=== PATIENT | male | born 1965 ===

== ENCOUNTER 2022-07-10 21:27 | Emergency (ER) | payer BC ==
[2022-07-10] MEDS ORDERED: Sodium Chloride 0.9% 20 ML SDV IV PRN (21:33)
[2022-07-10] MEDS ORDERED: Sodium Chloride 0.9% 2.5 ML Syringe FLUSH PRN (21:33)
[2022-07-10] MEDS ORDERED: Sodium Chloride 0.9% 10 ML Syringe FLUSH PRN (21:33)
[2022-07-10] MEDS ORDERED: Sodium Chloride 0.9% 1,000 ML IV STA (21:33)
[2022-07-10] MEDS ORDERED: Ondansetron 4 MG/2 ML SDV IVPUSH ONE (21:33)
[2022-07-10] MEDS: niCARdipine/Normal Saline 20 MG/200 ML BAG IV SCH (21:52)
[2022-07-10 22:49] LABS: BLOOD UREA NITROGEN,BUN 20 mg/dL (7.0-18.0); CARBON DIOXIDE,CO2 27.5 mmol/L (21.0-32.0); CHLORIDE,CL 102 mmol/L (98-107); GLUCOSE RANDOM 140 mg/dL (74-106); SODIUM,NA 139 mmol/L (136-148)
[2022-07-10 22:50] LABS: ESTIMATED GFR 50 mL/min (>60)
[2022-07-10 23:00] LABS: CORONAVIRUS COVID-19 NAA NEGATIVE (NEGATIVE); INFLUENZA A NAA NEGATIVE (NEGATIVE); INFLUENZA B NAA NEGATIVE (NEGATIVE); RESPIRATORY SYNCYTIAL VIR NAA NEGATIVE (NEGATIVE)
[2022-07-10] MEDS ORDERED: fentaNYL 50 MCG/ML SDV IVPUSH ONE (23:18)
[2022-07-11] MEDS ORDERED: Iopamidol 755 MG/ML 200 ML Multipack Bottle IVPUSH STA (00:36)
[2022-07-11] MEDS ORDERED: Iopamidol 755 MG/ML 500 ML Multipack Bottle IVPUSH STA (00:38)
[2022-07-11] MEDS: niCARdipine/Normal Saline 20 MG/200 ML BAG IV SCH ×2 (00:41→01:55)
[2022-07-11] MEDS ORDERED: Nitroglycerin 0.4 MG Tab.SL ONE (01:30)
[2022-07-11] MEDS ORDERED: Nitroglycerin 2% Oint 1 GM UD Packet ONE (01:30)
[2022-07-11] MEDS ORDERED: Nitroglycerin 2% Oint 1 GM UD Packet TOP ONE (01:32)
[2022-07-11] MEDS ORDERED: Nitroglycerin 0.4 MG Tab.SL SL ONE (01:32)
[2022-07-11] MEDS ORDERED: Metoprolol Tartrate 5 MG/5 ML SDV IVPUSH ONE ×2 (01:32→01:52)
[2022-07-11] MEDS ORDERED: Metoprolol Tartrate 5 MG/5 ML SDV ONE (01:51)
== END 2022-07-11 02:00 ==
LOC: MW.ED 21:27
DX: I62.9 Nontraumatic intracranial hemorrhage, unspecified (principal); I16.1 Hypertensive emergency; I10 Essential (primary) hypertension; E11.9 Type 2 diabetes mellitus without complications; Z20.822 Contact with and (suspected) exposure to COVID-19
CPT/HCPCS: 0241U; 36415; 70450; 70496; 70498; 71045; 80053; 80305; 80307; 81003; 84443; 84484; 85025; 85610; 85652; 85730; 93005; 96365; 96366; 96375; 99291; A9270; J2405; J3010; J3490; J7030; Q9967; 93010